=== PATIENT | male | born 1970 | race Caucasian/White ===

== ENCOUNTER 2025-01-02 06:56 | Outpatient (CLI) | payer BC, SELFPAY ==
--- NOTE | ~2025-01-02 | MR_ITS ---
MRI of the lumbar spine Clinical History: Back pain with right sciatica Technique: Axial T2-weighted images, and sagittal T1-weighted, T2-weighted, and and T2 fat-sat images were acquired. Findings: There is no fracture or subluxation of the lumbar spine. Vertebral bodies maintain normal h eight and alignment. No bone marrow signal abnormality seen. At L1-L2, there is no disc bulge or herniation. There is moderate facet hypertrophy. No spinal canal stenosis or neural foraminal narrowing. At L2-L3, there is no disc bulge or herniation. There is moderate facet hypertrophy. No central canal stenosis or neural foraminal narrowing. At L3-L4, there is no significant disc bulge or herniation. There is mild facet joint hypertrophy. No central canal stenosis or neural foraminal narrowing. At L4-L5, there is diffuse disc bulge and protrusion with severe facet arthropathy. There is no chela central canal stenosis. There is moderate to advanced left neural foraminal narrowing, and severe ri ght neural foraminal narrowing. At L5-S1, there is minimal disc bulge. No chela spinal canal stenosis. There is minimal left neural f oraminal narrowing. Right neural foramen preserved. Paravertebral soft tissues are unremarkable Impression: Advanced degenerative spondylitic changes at L4-L5, as detailed above. Minimal degenerative changes otherwise. Reviewed, dictated and finalized at [facility]. TRONIC TECH Impression: Advanced degenerative spondylitic changes at L4-L5, as detailed above. Minimal degenerative changes otherwise.
--- OUTSIDE RECORDS SUMMARY | 2025-01-02 07:02 | XMS_ITS | Clinical Summary ---
Author Organization [facility] Address [address] [place] [address] Care Team Providers Care Cylinder Tester Name Role Phone Burak Hauser MD Unavailable [phone] Isaura Gil PA-C Primary Care Provider [phone] Allergies No known active allergies Medications Cholecalciferol (VITAMIN D) 1000 UNIT tablet Take 1 tablet (1,000 Units total) by mouth daily. 8 Active cyclobenzaprine 10 MG tabletIndications: Chronic low back pain without sciatica, unspecified back pain laterality Take 1 tablet (10 mg total) by mouth 3 (three) times daily as needed for Muscle Spasms. 30 tablet 0 Active CPAP DEVICE, DME,Indications:Ob structive sleep apnea Smart cpap Low 5 High 15. Pt has excessive daytime sleepiness 1 Device 0 Active DICLOFENAC EC 75 MG tabletIndications: Chronic low back pain without sciatica, unspecified back pain laterality TAKE 1 TABLET(75 MG) BY MOUTH DAILY NEEDED FOR BACK PAIN 30 tablet 0 Active ibuprofen 600 MG tablet Take 600 mg by mouth every 6 (six) hours as needed for Pain. Active levothyroxine (SYNTHROID) 150 MCG tabletIndications: Hypothyroidism, unspecified type Take 1 pill daily from Monday to Monday. Take 2 pills every Monday and 2 pills every Monday 38 tablet 2 0 Active ondansetron (ZOFRAN-ODT) 4 MG disintegrating tablet Take 1 tablet (4 mg total) by mouth every 8 (eight) hours as needed for Nausea. 20 tablet 2 Active Active Problems Problem Noted Date Diagnosed Date Obstructive sleep apnea 03/02/2020 Chronic fatigue 01/19/2020 Chest pain 11/01/2018 SOB (shortness of breath) 11/01/2018 Hypothyroidism 11/30/2012 Obesity 11/30/2012 Low back pain 11/30/2012 Sciatica 11/30/2012 Resolved Problems Problem Noted Date Diagnosed Date Resolved Date Snoring 01/19/2020 03/02/2020 Family History Medical History Relation Comments Hypertension Father cad Maternal Grandfather Relation Status Comments Brother Alive Father Alive Maternal Grandfather Mother Alive Social History Tobacco Use Types Packs/Day Years Used Date Smoking Tobacco: Former Electronic Cigarettes Quit: 2017 Smokeless Tobacco: Former Quit: 2016 Comments:former cigarette sm oker; now uses ecigarettes Alcohol Use Standard Drinks/Week Comments Yes 0 (1 standard drink = 0.6 oz pur e alcohol) 1-2 / week Sex and Gender Information Value Date Recorded Sex Assigned at Not on file Legal Sex Male 8:34 PM CDT Gender Identity Not on file Sexual Orientation Not on file Occupation Industry Job Start Date Job End Date [employer] Not on file Not on file Not on file Last Filed Vital Signs Vital Sign Reading Time Taken Comments Blood Pressure 150/66 07/24/2022 4:42 PM CDT Pulse 80 07/24/2022 4:42 PM CDT Temperature 37.1 C (98.7 F) 07/24/2022 4:42 PM CDT Respiratory Rate 20 07/24/2022 4:42 PM CDT Oxygen Saturation 97% 07/24/2022 4:42 PM CDT Inhaled Oxygen Concentration - - Weight 135.6 kg (299 lb) 07/24/2022 12:46 PM CDT Height 185.4 cm (6' 1 ) 07/24/2022 12:46 PM CDT Body Mass Index 39.45 07/24/2022 12:46 PM CDT Plan of Treatment Health Maintenance Due Date Last Done Comments Colorectal Cancer Screening Colonoscopy (10 Years) 1971 Annual Physical 1974 Hepatitis C 1989 DTaP, Tdap and Td Vaccines ( 1 - Tdap) 1990 Hepatitis B Vaccines (1 of 3 - 19+ 3-dose series) 1990 Zoster Vaccines (1 of 2) 2021 COVID-19 Vaccine (3 - 2023-2 5 season) 2024 10/08/2021, 09/17/2021 Influenza Adult (#1) 2024 Meningococcal B Vaccine Aged Out No l onger eligible based on patient's age to complete this topic Meningococcal Vaccine Aged Out No jelly sofie eligible based on patient's age to complete this topic Pneumococcal Vaccine: Pediatrics (0 to 5 Years) and At-Risk Patients (6 to 64 Years) Aged Out No longer eligible b ased on patient's age to complete this topic RSV Immunizations Under 20 Months Aged Out No longer eligible b ased on patient's age to complete this topic Insurance [facility] Care Teams Cylinder Tester Relationship Specialty Start Date End Date Isaura Gil PA-C [address] [place] [address] PCP - General PHYSICIAN DRYING OVEN TENDER 04/05/23 Burak Hauser MD [facility]. [address] [address] [place] Supervisor Offset Plate Preparation CARDIOVASCULAR DISEASE 10/22/18
--- OUTSIDE RECORDS SUMMARY | 2025-01-02 07:02 | XMS_ITS | Continuity of Care Document ---
Author Name [facility] Organization [facility] Care Team Providers Care Director Of Outside Sales Name Role Phone [facility] Unavailable Unavailable Problems Combined list of problems from Department of Defense and Veterans Affairs facilities. It does not include entries that were removed or entered in error. Problem Status Onset Date Problem Type Date of Resolution Comments Source Back pain Active Condition [facility] Chronic kidney disease stage 2 Active Condition [facility] Elevated blood-pressure reading without diagnosis of hypertension Active Condition [facility] Fatty liver Active Condition [facility] History of calculus of kidney Active Condition [facility] Hyperlipidemia (SNOMED CT 61855591) Active Condition [facility] Hypothyroid (SNOMED CT 42938868) Active Condition [facility] Obesity Active Condition [facility] Plantar fasciitis Active Condition [facility] Prediabetes Active Condition [facility] Tinnitus Active Condition [facility] Vitamin D deficiency Active Condition [facility] Chronic low back pain (SNOMED CT 372761939) Inactive Condition 09/25/2023 [facility] Foot Pain (ICD-9-CM 719.47) Inactive Condition 09/25/2023 [facility] Knee Pain Inactive Condition 09/25/2023 [facility] Neck Pain Inactive Condition 09/25/2023 [facility] PTSD Inactive Condition 09/25/2023 [facility] Shoulder Pain Inactive Condition 09/25/2023 [facility] TOBACCO USE DISORDER Inactive Condition 09/25/2023 [facility] Vitamin D deficiency (SNOMED CT 22538127) Inactive Condition 09/25/2023 [facility] Diagnosis: ICD-10-CM E66.9 Obesity, unspecified Active Diagnosis [facility] Diagnosis: ICD-10-CM E03.9 Hypothyroidism, unspecified Active Diagnosis [facility] Diagnosis: ICD-10-CM M54.16 Radiculopathy, lumbar region Active Diagnosis [facility] Diagnosis: ICD-10-CM M54.9 Dorsalgia, unspecified Active Diagnosis [facility] Diagnosis: ICD-10-CM Z91.89 Oth personal risk factors, not elsewhere classified Active Diagnosis [facility] Diagnosis: ICD-10-CM Z00.01 Encounter for general adult medical exam w abnormal findings Active Diagnosis [facility] Medications Combined list of outpatient medications from Department of Defense and [facility] facilities.Medications provided include 1) outpatient medications from the last 15 months, and 2) patient-reported medications. Medication Details Route Status Patient Instructions Prescription Expires Prescription Number Last Dispense Date Ordering Provider Order Date Order Qty Source ACETAMINOPH EN 325MG TAB TAKE TWO TABLETS BY MOUTH FOUR TIMES A DAY NEEDED FOR PAIN/FEV ER. CAUTION: DO NOT EXCEED 4000MG PER DAY ACETAMIN OPHEN (APAP) FROM ALL MEDS. ORAL ACTIVE 07/27/2025 [id number] ADOLFO MI MD 2023 200 [facility] ACETAMINOPH EN 325MG TAB TAKE TWO TABLETS BY MOUTH FOUR TIMES A DAY NEEDED FOR PAIN/FEV ER. CAUTION: DO NOT EXCEED 4000MG PER DAY ACETAMIN OPHEN (APAP) FROM ALL MEDS. ORAL DISCONT INUED 05/29/2024 [id number] ADOLFO MI MD 2022 200 [facility] CHOLECALCIF ALEJANDRO 50MCG (2,000UNIT) TAB TAKE ONE TABLET BY MOUTH ONCE A DAY FOR VITAMIN D DEFICIEN CY ORAL 11/17/2024 [id number] BINGKATRIN LBY R 2022 100 [facility] CYCLOBENZAP RINE HCL 10MG TAB TAKE ONE TABLET BY MOUTH TWICE DAILY NEEDED FOR MUSCLE SPASM. MAY CAUSE DROWSINE SS. DO NOT DRINK ALCOHOL WHILE TAKING THIS MEDICATI ON. ORAL 09/28/2024 [id number] KATRIN SMART LBY R 2022 60 [facility] DICLOFENAC NA 75MG TAB,EC TAKE ONE TABLET BY MOUTH TWICE DAILY NEEDED FOR PAIN - TAKE WITH FOOD ORAL 09/28/2024 [id number] KATRIN SMART LBNikkie R 2022 60 [facility] LEVOTHYROXI NE NA 150MCG TAB (SYNTHROID) TAKE ONE TABLET BY MOUTH MON, MON, MON, MON AND MON AND TAKE TWO TABLETS MONDAY AND MONDAY FOR HYPOTHYR OIDISM TAKE 30 MINUTES BEFORE FOOD. TAKE SEPARATE LY FROM ALL OTHER MEDICATI ONS. ORAL DISCONT INUED (EDIT) 09/28/2024 [id number] KATRIN SMART R 2022 108 [facility] LEVOTHYROXI NE NA 175MCG TAB TAKE ONE TABLET BY MOUTH ONCE A DAY FOR HYPOTHYR OIDISM TAKE 30 MINUTES BEFORE FOOD. TAKE SEPARATE LY FROM ALL OTHER MEDICATI ONS. ORAL 12/25/2024 [id number] ME JEFFY TTISA 2023 90 [facility] Immunizations Combined list of available immunizations from the Department of Defense and Veterans [facility] facilities. Immunization Series Date Given Administered By Site Reaction Lot Number CVX Code Drug Grocery Supervisor Status Comments Source COVID-19 (PFIZER), MRNA, LNP-S, PF, 30 MCG/0.3 ML DOSE 2 2020 208 complet ed [facility] COVID-19 (PFIZER), MRNA, LNP-S, PF, 30 MCG/0.3 ML DOSE 1 2020 208 complet ed [facility] TDAP 2011 115 complet ed Right Deltoid [facility] TDAP 2007 115 complet ed [place] INFLUENZA, UNSPECIFIED FORMULATION 2004 88 complet ed [facility] Results Combined list of recent chemistry, hematology and other laboratory results from Department of Defense and Veterans Affairs, ranging from 15 months to all on record, depending upon the facility. Order Name Results Value Reference Range Date Interpretation Specimen Comments Source HGA1C HEMOGLOBIN A1C/HEMOGL OBIN.TOTAL IN BLOOD 5.3 4.0 - 6.0 09/25 Specimen Type: BLOOD No comment entered. Ordering Provider: FIGUEROA BARDALES EVERETT Report Released Date/Time: Sep 24, 2024 01:44 PM Reporting Lab: [place] [address] Performing Lab: [address] PROST. SPECIFIC AG.(PB-S TL) PROSTATE SPECIFIC AG [MASS/VOLU ME] IN SERUM OR PLASMA 2.003 ng/mL 0 - 4 09/25 Specimen Type: SERUM Comment: The listed sex of this patient may not be a typical indication for this test. Therefore, reference ranges or interpretiv e criteria listed may not be valid. Clinical correlation suggested. Ordering Provider: FIGUEROA BARDALES EVERETT Report Released Date/Time: Sep 24, 2024 01:44 PM Reporting Lab: [place] [address] Performing Lab: [address] TSH W/ REFLEX FT4 (STL) THYROTROPI N [UNITS/VOL UME] IN SERUM OR PLASMA 12.725 u[IU]/mL 0.47 - 5 09/25 H Specimen Type: PLASMA No comment entered. Ordering Provider: FIGUEROA BARDALES EVERETT Report Released Date/Time: Sep 24, 2024 01:45 PM Reporting Lab: [place] [address] Performing Lab: [address] TSH W/ REFLEX FT4 (STL) FREE T4(REFLEX) 0.93 ng/mL 0.7 - 1.48 09/25 Specimen Type: PLASMA No comment entered. Ordering Provider: FIGUEROA BARDALES EVERETT Report Released Date/Time: Sep 24, 2024 01:45 PM Reporting Lab: [facility] [address] [place] [phone] Performing Lab: [facility] [address] [place] [phone] [facility] LIPID PANEL (STL) CHOLESTERO L [MASS/VOLU ME] IN SERUM OR PLASMA 251 mg/dL 0 - 200 09/25 H Specimen Type: PLASMA Comment: No hemolysis noted. Ordering Provider: FIGUEROA BARDALES EVERETT Report Released Date/Time: Sep 24, 2024 01:44 PM Reporting Lab: [address] [address] Performing Lab: [address] [phone] [facility] LIPID PANEL (STL) TRIGLYCERI DE [MASS/VOLU ME] IN SERUM OR PLASMA 139 mg/dL 0 - 150 09/25 Specimen Type: PLASMA Comment: No hemolysis noted. Ordering Provider: FIGUEROA BARDALES EVERETT Report Released Date/Time: Sep 24, 2024 01:44 PM Reporting Lab: [address] [phone] Performing Lab: [address] [phone] [facility] LIPID PANEL (STL) CHOLESTERO L IN LDL [MASS/VOLU ME] IN SERUM OR PLASMA BY CALCRONIT N 182 mg/dL 09/25 Specimen Type: PLASMA Comment: No hemolysis noted. Ordering Provider: FIGUEROA BARDALES EVERETT Report Released Date/Time: Sep 24, 2024 01:44 PM Reporting Lab: [address] [phone] Performing Lab: [address] [phone] [facility] LIPID PANEL (STL) CHOLESTERO L IN HDL [MASS/VOLU ME] IN SERUM OR PLASMA 41 mg/dL 40 09/25 Specimen Type: PLASMA Comment: No hemolysis noted. Ordering Provider: FIGUEROA BARDALES EVERETT Report Released Date/Time: Sep 24, 2024 01:44 PM Reporting Lab: [address] [address] Performing Lab: [place] [phone] BASIC METABOLI C PANEL CREATININE [MASS/VOLU ME] IN SERUM OR PLASMA 1.44 mg/dL 0.7 - 1.3 09/25 H Specimen Type: PLASMA Comment: No hemolysis noted. Ordering Provider: FIGUEROA BARDALES EVERETT Report Released Date/Time: Sep 24, 2024 01:44 PM Reporting Lab: [place] [phone] Performing Lab: [address] [phone] [place] [address] BASIC METABOLI C PANEL UREA NITROGEN [MASS/VOLU ME] IN SERUM OR PLASMA 15.1 mg/dL 9.0 - 25.0 09/25 Specimen Type: PLASMA Comment: No hemolysis noted. Ordering Provider: FIGUEROA BARDALES EVERETT Report Released Date/Time: Sep 24, 2024 01:44 PM Reporting Lab: [address] [phone] Performing Lab: [address] [phone] [place] [address] BASIC METABOLI C PANEL GLUCOSE [MASS/VOLU ME] IN SERUM OR PLASMA 83 mg/dL 72 - 99 09/25 Specimen Type: PLASMA Comment: No hemolysis noted. Ordering Provider: FIGUEROA BARDALES EVERETT Report Released Date/Time: Sep 24, 2024 01:44 PM Reporting Lab: [address] [phone] Performing Lab: [place] [address] [facility] [phone] [facility] BASIC METABOLI C PANEL SODIUM [MOLES/VOL UME] IN SERUM OR PLASMA 138 meq/L 136 - 145 09/25 Specimen Type: PLASMA Comment: No hemolysis noted. Ordering Provider: FIGUEROA BARDALES VEERETT Report Released Date/Time: Sep 24, 2024 01:44 PM Reporting Lab: [address] [phone] Performing Lab: [address] [phone] [place] [address] BASIC METABOLI C PANEL POTASSIUM [MOLES/VOL UME] IN SERUM OR PLASMA 4.2 meq/L 3.5 - 5 09/25 Specimen Type: PLASMA Comment: No hemolysis noted. Ordering Provider: FIGUEROA BARDALES EVERETT Report Released Date/Time: Sep 24, 2024 01:44 PM Reporting Lab: [address] [phone] Performing Lab: [address] [phone] [place] [address] BASIC METABOLI C PANEL CHLORIDE [MOLES/VOL UME] IN SERUM OR PLASMA 100 meq/L 98 - 107 09/25 Specimen Type: PLASMA Comment: No hemolysis noted. Ordering Provider: FIGUEROA BARDALES EVERETT Report Released Date/Time: Sep 24, 2024 01:44 PM Reporting Lab: [address] [phone] Performing Lab: [address] [phone] [facility] BASIC METABOLI C PANEL CARBON DIOXIDE, TOTAL [MOLES/VOL UME] IN SERUM OR PLASMA 26 meq/L 22 - 31 09/25 Specimen Type: PLASMA Comment: No hemolysis noted. Ordering Provider: FIGUEROA BARDALES EVERETT Report Released Date/Time: Sep 24, 2024 01:44 PM Reporting Lab: [place] [address] [facility] [address] Performing Lab: [place] [address] [place] [phone] BASIC METABOLI C PANEL CALCIUM [MASS/VOLU ME] IN SERUM OR PLASMA 10.2 mg/dL 8.4 - 10.4 09/25 Specimen Type: PLASMA Comment: No hemolysis noted. Ordering Provider: FIGUEROA BARDALES EVERETT Report Released Date/Time: Sep 24, 2024 01:44 PM Reporting Lab: [address] [address] Performing Lab: [place] [address] BASIC METABOLI C PANEL GLOMERULAR FILTRATION RATE/1.73 SQ M.PREDICTE D [VOLUME RATE/AREA] IN SERUM, PLASMA OR BLOOD BY CREATININE -BASED FORMULA (CKD-EPI 2020) 58.1 60 09/25 Specimen Type: PLASMA Comment: No hemolysis noted. Ordering Provider: FIGUEROA BARDALES EVERETT Report Released Date/Time: Sep 24, 2024 01:44 PM Reporting Lab: [place] [address] [place] [phone] Performing Lab: [place] [address] [facility] [phone] OCCULT BLOOD FIT X1 SCREEN HEMOGLOBIN .GASTROINT ESTINAL.LO WER [PRESENCE] IN STOOL BY IMMUNOASSA Y Negative 01/01 Specimen Type: FECES No comment entered. Ordering Provider: [place] SMART Report Released Date/Time: Nov 08, 2023 08:15 AM Reporting Lab: [place] [phone] Performing Lab: [place] [address] [facility] [phone] [place] [address] TSH (MA-PB-S TL) THYROTROPI N [UNITS/VOL UME] IN SERUM OR PLASMA 5.130 u[IU]/mL 0.47 - 5 11/08 H Specimen Type: SERUM Comment: The listed sex of this patient may not be a typical indication for this test. Therefore, reference ranges or interpretiv e criteria listed may not be valid. Clinical correlation suggested. Ordering Provider: [place] SMART Report Released Date/Time: Nov 08, 2023 08:15 AM Reporting Lab: [place] [address] Performing Lab: [address] TSH (MA-PB-S TL) THYROXINE (T4) FREE [MASS/VOLU ME] IN SERUM OR PLASMA 0.91 ng/mL 0.7 - 1.48 11/08 Specimen Type: SERUM Comment: The listed sex of this patient may not be a typical indication for this test. Therefore, reference ranges or interpretiv e criteria listed may not be valid. Clinical correlation suggested. Ordering Provider: [place] SMART Report Released Date/Time: Nov 08, 2023 08:15 AM Reporting Lab: [place] [address] Performing Lab: [address] HGA1C HEMOGLOBIN A1C/HEMOGL OBIN.TOTAL IN BLOOD 5.7 4.0 - 6.0 11/08 Specimen Type: BLOOD No comment entered. Ordering Provider: [place] SMART Report Released Date/Time: Nov 08, 2023 08:15 AM Reporting Lab: [place] [address] Performing Lab: [address] LIPID PANEL (STL) CHOLESTERO L [MASS/VOLU ME] IN SERUM OR PLASMA 171 mg/dL 0 - 200 11/08 Specimen Type: PLASMA Comment: No hemolysis noted. Ordering Provider: [place] SMART Report Released Date/Time: Nov 08, 2023 08:15 AM Reporting Lab: [facility] [address] [facility] [address] Performing Lab: [facility] [address] [place] [phone] [facility] LIPID PANEL (STL) TRIGLYCERI DE [MASS/VOLU ME] IN SERUM OR PLASMA 117 mg/dL 0 - 150 11/08 Specimen Type: PLASMA Comment: No hemolysis noted. Ordering Provider: [place] SMART Report Released Date/Time: Nov 08, 2023 08:15 AM Reporting Lab: [address] [phone] Performing Lab: [address] [phone] [facility] LIPID PANEL (STL) CHOLESTERO L IN LDL [MASS/VOLU ME] IN SERUM OR PLASMA BY CALCULARADHA N 117 mg/dL 11/08 Specimen Type: PLASMA Comment: No hemolysis noted. Ordering Provider: [place] SMART Report Released Date/Time: Nov 08, 2023 08:15 AM Reporting Lab: [facility] [address] [place] [phone] Performing Lab: [address] [phone] [facility] LIPID PANEL (STL) CHOLESTERO L IN HDL [MASS/VOLU ME] IN SERUM OR PLASMA 31 mg/dL 40 11/08 L Specimen Type: PLASMA Comment: No hemolysis noted. Ordering Provider: KY SMART Report Released Date/Time: Nov 08, 2023 08:15 AM Reporting Lab: [facility] [address] [place] [phone] Performing Lab: [address] [phone] [facility] VITAMIN D, 25-HYDRO XY 25-HYDROXY VITAMIN D3 [MASS/VOLU ME] IN SERUM OR PLASMA 22.9 ng/mL 30 - 96 11/08 L Specimen Type: SERUM No comment entered. Ordering Provider: [place] SMART Report Released Date/Time: Nov 08, 2023 08:15 AM Reporting Lab: [facility] [address] [place] [address] Performing Lab: [facility] [address] [place] [phone] [facility] Vital Signs Combined list of inpatient and outpatient Vital Signs from Department of [facility] and [facility], ranging from 12 months to all on record, depending upon the facility. Vital Sign Value Date Comments Source SYSTOLIC BLOOD PRESSURE 165 09/24/2024 13:50:49 [facility] DIASTOLIC BLOOD PRESSURE 75 09/24/2024 13:50:49 [facility] PULSE OXIMETRY 95 09/24/2024 13:50:49 [facility] WEIGHT 299.8 09/24/2024 13:50:[address] [facility] BMI 42 kg/m2 09/24/2024 13:50:[address] [facility] PAIN 9 09/24/2024 13:50:[address] [facility] TEMPERATURE 98.8 09/24/2024 13:50:49 [facility] PULSE 67 09/24/2024 13:50:[address] [facility] RESPIRATION 18 09/24/2024 13:50:49 [facility] Encounters Combined list of: 1) Encounters from Department of Veterans Affairs facilities going backup to the last 18 months, not all [place] inpatient encounters are included; 2) Encounters from the Department of [facility] facilities going backup to 280 months. Location Location Details Encounter Type Encounter Number Reason For Visit Attending Provider ADM Date DC Date Status Disposition Source [facility] HC PRO PHONE CALL 5-10 MIN [id number] STEPAN GALLEGO C 09/20 [facility] Outpatient Encounter [id number] Diagnos is: ICD-10- CM Z00.01 Encount er for general adult medical exam w abnorma l finding s JUAN FRANCISCO SMART BY Julio 09/[address] [facility] OFF/OP EST MARCH X REQ PHY/QHP [id number] Diagnos is: ICD-10- CM Z91.89 Oth persona l risk factors , not elsewhe re classif ied [place] Mica 10/10 [facility] Outpatient Encounter [id number] ROMI MEJIA 10/10 [facility] Outpatient Encounter [id number] JUVENTINO GILLESPIE 03/11 [facility] Outpatient Encounter [id number] JUVENTINO GILLESPIE 03/11 [facility] Outpatient Encounter [id number] JUVENTINO GILLESPIE 03/15 [facility] Outpatient Encounter [id number] Diagnos is: ICD-10- CM M54.9 Dorsalg ia, unspeci fied JUAN FRANCISCO SMART BY Julio 03/25 [facility] Outpatient Encounter [id number] 04/17 [facility] Outpatient Encounter [id number] 06/04 [facility] Outpatient Encounter [id number] 06/05 [facility] Outpatient Encounter [id number] 08/06 [facility] OFF/OP CONSLTJ NEW/EST HI 55 [id number] Diagnos is: ICD-10- CM M54.16 Radicul opathy, lumbar region BRUCE PRESTON 09/18 [facility] Outpatient Encounter [id number] 09/20 [facility] OFFICE O/P EST MOD 30 MIN [id number] Diagnos is: ICD-10- CM E03.9 Hypothy roidism , unspeci fied JEFFY,MET DAT 09/24 [facility] Outpatient Encounter [id number] ROMI MEJIA L 09/26 [facility] Outpatient Encounter [id number] ROMI MEJIAYN L 10/22 [facility] Outpatient Encounter [id number] ROMI MEJIA ELESAU L 11/29 [facility] [place] [id number] Diagnos is: ICD-10- CM E66.9 Obesity , unspeci fied RYAN CHILEL C 12/18 [facility] Outpatient Encounter [id number] 12/19 [facility] Social History Combined list of available smoking, tobacco, and other social history from Department of Defense and Veterans Affairs facilities. Social History Type Response Date Comment Sour e Tobacco smoking status NHIS VA-TOBACCO FORMER USER 09/24/2024 [facility] History of tobacco use VA-TOBACCO QUIT 5 TO < 15 YRS 09/24/2024 [facility] History of tobacco use VA-TOBACCO QUIT 5 TO < 15 YRS 09/22/2023 [facility] History of tobacco use VA-TOBACCO QUIT 1 TO < 5 YRS 03/23/2021 [facility] History of tobacco use VA-TOBACCO FORMER [facility]ER [facility]19[facility] History of tobacco use QUIT TOBACCO >12 MO and <7 YRS AGO 03/19/2018 [facility] History of tobacco use CURRENT TOBACCO USER 03/17/2017 [facility] History of tobacco use QUIT TOBACCO >7 YEARS AGO 07/16/2015 [facility] History of tobacco use CURRENT TOBACCO USER 04/15/2014 [facility] History of tobacco use TOBACCO OFFERRED PT MEDS (PROVIDER) 06/22/2012 [facility] History of tobacco use CURRENT TOBACCO USER 05/14/2010 Pal [facility] History of tobacco use CURRENT TOBACCO USER 07/23/2009 Pal [facility] History of tobacco use TOBACCO OFFERED STOP SMOKING CLINIC 05/05/2008 [facility] History of tobacco use CURRENT TOBACCO USER 01/25/2007 Pal [facility] History of tobacco use CURRENT TOBACCO USER 07/20/2006 [facility] History of tobacco use CURRENT NON-TOBACCO USER-HX OF USE 01/03/2006 [facility] History of tobacco use CURRENT TOBACCO USER 04/06/2005 Pal [facility] History of tobacco use CURRENT NON-TOBACCO USER-HX OF USE 10/07/2004 [facility] History of tobacco use CURRENT NON-TOBACCO USER-HX OF USE 08/14/[address] [facility] History of tobacco use CURRENT NON-TOBACCO USER-HX OF USE 09/20/2002 quit 6 months ago [facility] History of tobacco use CURRENT TOBACCO USER 04/10/2002 [facility] History of tobacco use CURRENT NON-TOBACCO USER-HX OF USE 05/22/2001 QUIT 4 YRS AGO [facility] This section is an empty social history section. [facility] Plan of Care List of future care activities from Department of [facility] facilities. Additional future care activities may be listed in the Assessment and Plan section. Date/Time Care Activity Care Activity Detail Facili ty 01/02/2025 AMBULATORY - NONE AMBULATORY - NONE [facility] 03/27/2025 AMBULATORY - NONE AMBULATORY - NONE [facility] 11/22/2024 Consult Order [facility]-AUTO STL Cons Copy Worker's Choice [facility] 12/11/2024 Laboratory - Live In Housekeeper Nanny ry Order OCCULT BLOOD FIT X1 SCREEN (MFP ONLY) STOOL FECES SP [facility]
--- OUTSIDE RECORDS SUMMARY | 2025-01-02 07:02 | XMS_ITS | Data Portability ---
Author Organization [facility], Main Office Address [address] [place] [address] Assessment No assessment recorded. Plan of Treatment Reminders Order Date Submit Date Provider Last Modified By Organization Details Last Modified Time Details Appointments None recorded. Lab None recorded. Referral None recorded. Procedures None recorded. Surgeries None recorded. Imaging None recorded. Medication Orders ipratropium bromide 42 mcg (0.06 %) nasal spray 2023 [id number], [address] [place], [place], [phone], 13:04:35 Patient TargetsNo targets recorded. Patient Instructions Encounter Date Encounter Id Patient Instructions Last Modified By Organization Details Last Modified Time 05/16/2024 [id number] we will try Atrovent but he is a good candidate for cryotherapy of the vidian nerve. His onset of symptoms does correlate with burn pit exposure [email or web address] Not available 05/16/2024 13:04:09 Reason for Referral None Reported. Problems Name Problem SNOMED Code Status Onset Date Resolution Date Notes Provider Name and Address Organization Details Recorded Time Vasomotor rhinitis 8454679 Active 024 Kush Harp MD [address] [place] [address], [id number] , [facility] [employer] 13:03:32 Problem Notes None recorded. Medical Equipment None Reported. Allergies No known drug allergies Medications Name Sig Start Date Stop Date Status Note LastModified by Organization Details LastModified Time cyclobenzapr ine 10 mg tablet active Not Available Not Available Not Available diclofenac sodium 75 mg tablet,delay ed release active Not Available Not Available N ot Available ipratropium bromide 42 mcg (0.06 %) nasal spray [place] 2 sprays 3 times a day by intranasal route. active Not Available Not Available No t Available levothyroxin e active Not Available Not Available Not Available ibuprofen active DAILY FOR PAIN Not Available Not Available Not Available Vitals Date Recorded Body weight Body mass index (BMI) Body height Body temperature Provider Name and Address Organization Details Last Updated DateTime 05/16/2024 234459.17 g 43 kg/m2 180.34 cm 98 [degF] Cari Biggs RN [facility] [employer] [facility] 05/16/2024 12:44:18 Social History Question Answer Notes LastModified by Organizat ion Details LastModified Time Tobacco Smoking Status Former Smoker Cari Biggs RN null, [facility] [employer] [facility] 05/16/2024 12:40:25 When Did You Quit Smoking? 6-10yearssin celastcigare tte [email or web address] Information not available 05/16/2024 Sex: Unknown Functional Status None recorded. Mental Status None recorded. Family History Relationship Description Onset Age of this Age Resolved Age Notes LastModified by Organization Details LastModified Time Father No current problems or disability [email or web address] Not available 05/16 12:42:53 Mother No current problems or disability [email or web address] Not available 05/16 12:42:53 Notes:NO ENT Medical History Condition Response SLEEP DISORDER Y Past Encounters Encounter ID Performer Location Encounter Start Date Encounter Closed Date Diagnosis/Indication Diagnosis SNOMED-CT Code Diagnosis ICD10 Code Diagnosis Note [id number] Kush Harp MD [facility] [place] [address] [place] [address] 05/16/2024 11:55:57 05/16/2024 16:15:47 Vasomotor rhinitis 3800345 J30.0 Health Concerns Section Related Observation LastModified by Organization Detai ls LastModified Time None Recorded Concern Status LastModified by Organization Details LastModified Time None Recorded Advance Directives Directive None Recorded Payers Encounter Date Sequence Insurance Name Policy Number Policy Clinton Covered Member ID Clinton Member ID Guarantor Name 05/16/2024 1 [place] [employer] ([place]) 105 Ki Godinez [id number] Ki Godinez Notes Date Note Type Note Provider Name and Address Organization Details Recorded Time 05/16/2024 text/html this patient reports a many years history of incessant rhinorrhea. He has been exposed to burn pits in [place] and has tried numerous fayg-svt-mbjwlwk sprays and pills without success. In addition he has nasal CPAP but is unable to use this at this time. Kush Harp MD [address] [place] [address], [place], [address], [place] - [facility] [employer] 05/16/2024 13:04:43
--- OUTSIDE RECORDS SUMMARY | 2025-01-02 07:02 | XMS_ITS | Clinical Summary ---
Author Organization [facility] Address [address] [place] [address] Care Team Providers Care Bell Clerk Name Role Phone Unavailable Primary Care Provider Unavailabl e Encounters Date Type Department Care Team Description 12/31/2024 External Device Data [facility] ABSTRACTION Provider, Abstract 11/26/2024 External Device Data [facility] ABSTRACTION Provider, Abstract from Last 3 Months Social History Tobacco Use Types Packs/Day Years Used Date Smoking Tobacco: Never Assessed Sex and Gender Information Value Date Recorded Sex Assigned at Not on file Legal Sex Male 3:21 PM CDT Gender Identity Not on file Sexual Orientation Not on file Plan of Treatment Health Maintenance Due Date Last Done Comments HEPATITIS B VACCINES (1 of 3 - 19+ 3-dose series) 1990 COLORECTAL SCREENING 2016 Colorectal Cancer Screening 2016 FIT-DNA Q 3 years 2016 FIT/FOBT Q 1 year 2016 Flex Sig/CT Colonography Q 5 years 2016 ZOSTER VACCINE (1 of 2) 2021 DTAP/TDAP/TD VACCINES (3 - T d or Tdap) 06/22/2022 06/22/2012, 09/28/2008 INFLUENZA VACCINE (#1) 2024 PNEUMOCOCCAL VACCINE 0-64 YEARS Aged Out No longer eligible b ased on patient's age to complete this topic Insurance [employer]
--- OUTSIDE RECORDS SUMMARY | 2025-01-02 07:02 | XMS_ITS | Encounter Summary ---
Author Name [facility] Organization [facility] Address [address] [place] [address] Care Team Providers Care Explosives Handler Name Role Phone BEBA SMART Primary Care Provider Unavailabl e Insurance Providers: All historical and current Section Date Range: From patient's date of to the date document was created. This section includes the names of all active insurance providers for the patient. Insurance Provider Type of Coverage Plan Name Start of Policy Coverage End of Policy Coverage Group Number Member ID Insurance Provider's Telephone Number Policy Clinton's Name Patient's Relationship to Policy Clinton [place] PREFERRED PROVIDER ORGANIZAT ION (PPO) FEP STAND SABA FAM Dec 01, 2013 105 [id number] [phone] ROBBIE GODINEZ PATIENT ANTHEM [place] F[place] PREFERRED PROVIDER ORGANIZAT ION (PPO) FEP STAND SABA FAM Dec 01, 2013 105 [id number] [phone] ROBBIE GODINEZ PATIENT ANTHEM [place] PREFERRED PROVIDER ORGANIZAT ION (PPO) FEP STAND SABA FAM Dec 01, 2013 105 [id number] [phone] ROBBIE GODINEZ PATIENT [place] PREFERRED PROVIDER ORGANIZAT ION (PPO) FEP STAND SABA FAM Dec 01, 2013 105 [id number] [phone] ROBBIE GODINEZ PATIENT [employer] FEP ([id number]) PRESCRIPT ION FEPRX Dec 01, 2013 [id number] [phone] ROBBIE GODINEZ PATIENT Selected Encounter This section includes the information on record at OR for the Encounter. Date/Time Encounter Type Encounter Description Reason Provider Source Sep 18, 2024 02:00 PM OFF/OP CONSLTJ NEW/EST HI [facility] ICD-10-CM M54.16 Radiculopathy , lumbar region BRUCE PRESTON [facility] Encounter Template Text not used by OR Assessments - Encounter Diagnoses This section includes the primary and secondary diagnoses documented for the Encounter. Date/Time Primary/Secondary Diagnosis Diagnosis Name Provider Source Sep 18, 2024 02:42 PM PRIMARY Radiculopathy, lumbar region BRUCE PRESTON [facility] Sep 18, 2024 02:42 PM SECONDARY Other chronic pain BRUCE PRESTON [facility] Plan of Treatment: Future Appointments (+ 6 months) and Future Tests (+/- 45 days) The Plan of Treatment section includes future care activities for the patient from all OR treatmentfacilities. This section includes future appointments and future orders which are active, pending or scheduled. Future Appointments This section includes appointments that were scheduled to occur 6 months from the date of the Encounter, up to a maximum of 20 appointments. The data comes from all [place] treatment facilities. Appointment Date/Time Appointment Type Appointme nt Facility Name Sep 24, 2024 02:00 PM AMBULATORY - MEDICINE [facility] Dec 18, 2024 08:30 AM AMBULATORY - NONE [facility] Jan 02, 2025 07:00 AM AMBULATORY - NONE [facility] Lab Results: +/- 30 days of the encounter This section includes the Chemistry and Hematology Lab Results on record with OR for the patient. Radiology Reports and Pathology Reports are provided separately, in subsequent sections. Lab Results This section contains the Chemistry/Hematology Results that were resulted 30 days before or 30 daysafter the date of the Encounter. Date/Time Source Result Type Result - Unit Interpretation Reference Range Comment Sep 25, 2024 01:12 PM [facility] HGA1C Specimen Type: BLOOD No comment entered. Ordering Provider: PATTI BARDALES Report Released Date/Time: Sep 24, 2024 01:44 PM Reporting Lab: [facility] [address] [facility] [address] Performing Lab: [facility] [address] [facility] [address] HGA1C 5.3 4.0-6.0 Sep 25, 2024 01:12 PM [facility] PROST. SPECIFIC AG.(PB-STL) Specimen Type: SERUM Comment: The listed sex of this patient may not be a typical indication for this test. Therefore, reference ranges or interpretive criteria listed may not be valid. Clinical correlation suggested. Ordering Provider: PATTI BARDALES Report Released Date/Time: Sep 24, 2024 01:44 PM Reporting Lab: [address] [address] Performing Lab: [address] [address] PROST. SPECIFIC AG.(PB-STL) 2.003 ng/mL 0-4 Sep 25, 2024 01:12 PM [facility] TSH W/ REFLEX FT4 (STL) Specimen Type: PLASMA No comment entered. Ordering Provider: PATTI BARDALES Report Released Date/Time: Sep 24, 2024 01:45 PM Reporting Lab: [address] [address] Performing Lab: [address] [address] TSH 12.725 u[IU]/mL H 0.47-5 FREE T4(REFLEX) 0.93 ng/mL 0.7-1.48 Sep 25, 2024 01:12 PM [facility] LIPID PANEL (STL) Specimen Type: PLASMA Comment: No hemolysis noted. Ordering Provider: PATTI BARDALES Report Released Date/Time: Sep 24, 2024 01:44 PM Reporting Lab: [address] [address] Performing Lab: [address] [address] CHOLESTEROL 251 mg/dL H 0-200 TRIGLYCERIDE 139 mg/dL 0-150 CALCULATED LDL 182 mg/dL HDL(New) 41 mg/dL >40 Sep 25, 2024 01:12 PM [facility] BASIC METABOLIC PANEL Specimen Type: PLASMA Comment: No hemolysis noted. Ordering Provider: PATTI BARDALES Report Released Date/Time: Sep 24, 2024 01:44 PM Reporting Lab: [facility] [address] [facility] [address] Performing Lab: [facility] [address] [facility] [address] CREATININE 1.44 mg/dL H 0.7-1.3 UREA NITROGEN 15.1 mg/dL 9.0-25.0 GLUCOSE 83 mg/dL 72-99 SODIUM 138 meq/L 136-145 POTASSIUM 4.2 meq/L 3.5-5 CHLORIDE 100 meq/L 98-107 CARBON DIOXIDE 26 meq/L 22-31 CALCIUM 10.2 mg/dL 8.4-10.4 EGFR (CKD-EPI 2020) 58.1 >60 Encounter Notes: All associated encounter notes This section contains the clinical notes associated to the Encounter. Date/Time Encounter Note(s) Provider Source Sep 18, 2024 02:07 PM TELEHEALTH CONSULT : LOCAL TITLE: V15 EMMY PUENTE MD CONSULT STANDARD TITLE: TELEHEALTH CONSULT DATE OF NOTE: SEP 18, 2024@14:07 ENTRY DATE: SEP 18, 2024@14:08:10 AUTHOR: BRUCE PRESTON EXP COSIGNER: URGENCY: STATUS: COMPLETED This was a telemedicine visit with which took place via video connect. During the visit, I was located in the office and the patient was located in his home. Vet confirmed current location and phone number. The option of participating in a telephone or video visit were provided to the patient. After being given an opportunity to ask questions about and discuss this type of visit, they verbally consented to proceeding with the (video visit) and understands that this service replaces an office visit. Patient was instructed that session would occur through telemedicine clinic. Kelley agreeable to tele health visit and gives consent to (VVC appointment). The physician was on one side of the video screen while the was on the other side of the video screen via OR [employer] Connect. Any Additional Persons in the Room: n/a Address and phone number verified per CPRS and report. Emergency contact's number confirmed. Physician could see and at the same time, the could see Physician to give instruction in reason for request. -Local Tax Technician if Patient Does Not Have 911 Available: -E911: [phone] Emergency Use Only- e911 Instructions Call [phone] to speak with an agent who can put you in touch with a transcribing operator head at the Patient's location. You must have the physical location (address) where the Patient is currently located. -[facility] Crisis Line: [phone] Press Option 1 -Telehealth Technology Help Desk: Technical Assistance For technical assistance, clinicians should contact the [facility] Help Desk ([facility]) [phone] or , Monday through Monday, 7 a.m. through 11 p.m. EST. Patient Name: Wendi Godinez Patient : Dec Date: SEP 18, 2024 PCP: BEBA SMART CHIEF COMPLAINT: low back pain HPI: Wendi is a 54 year old MALE was referred by BEBA SMART for consultation regarding treatment recommendations for management of low back pain Wendi is a 54 year-old MALE with a history of prediabetes, fatty liver, hyperlipidemia who presents with chronic low back pain for the last several decades Current low back pain began with no precipating event. Since onset, pain has progressed. He tells me that he has several bulging discs, and is in the process of getting these uploaded. has lumbar films from 2016. Pain has progressed since then in intensity and not as responsive to conservative efforts. Pain also travels down the right lower extremity. He reports no new bowel/bladder incontinence, numbness, tingling recent fevers, chills, or weight loss. The pain is constant and described as Worst Pain: low back pain Pain description, characteristics: aching constant Pain intensity: worst pain in last week - 10/10; least pain in the last week- 5/10; current pain - 5/10. Radiation of pain: Symptoms travel down the posterior thigh, calf, and plantar aspect of the right foot Associated signs/symptoms: has associated numbness and tingling with sitting and standing for long periods of time. Standing for long periods of time, causes numbness down the right leg. If he sleeps for long periods of time, he has muscle spasms Therapeutic modalities to date include at least 6 week during the past 6 months of conservative treatment to include [X ]rest/ice/heat/modified activities [ ]acupuncture [X ]physical therapy- seen a physical therapist with [facility], and did have some relief [X]care specialist- sees a chiropracter, helps alleviate some of the pain [ ]whole health Previous injections: - has not had any injections in the lumbar spine Current and Prior Pain Medications: Opioid: AEDs: Anti-Depressants: Muscle Relaxants: cyclobenzaprine 10mg BID as needed Anti-Inflammatories: diclofenac 75mg BID as needed Topical: Sleep Aids: Other: Diagnostics: Date Procedure CPT Status Case # I personally reviewed the patient's labs, radiology results, and/or scanned media from the patient's outside healthcare provider. Any relevant history findings are incorporated into the HPI and any relevant labs are included in the results. I personally reviewed the above neurologic imaging, if available and unless otherwise stated. Active Outpatient Medications (including Supplies): Active Outpatient Medications Status 1) ACETAMINOPHEN 325MG TAB TAKE TWO TABLETS BY MOUTH ACTIVE FOUR TIMES A DAY NEEDED FOR PAIN/FEVER. CAUTION: DO NOT EXCEED 4000MG PER DAY ACETAMINOPHEN (APAP) FROM ALL MEDS. 2) CHOLECALCIF 50MCG (D3-2,000UNIT) TAB TAKE ONE TABLET ACTIVE BY MOUTH ONCE A DAY FOR VITAMIN D DEFICIENCY 3) CYCLOBENZAPRINE HCL 10MG TAB TAKE ONE TABLET BY MOUTH ACTIVE TWICE DAILY NEEDED FOR MUSCLE SPASM. MAY CAUSE DROWSINESS. DO NOT DRINK ALCOHOL WHILE TAKING THIS MEDICATION. 4) DICLOFENAC NA 75MG EC TAB TAKE ONE TABLET BY MOUTH ACTIVE TWICE DAILY NEEDED FOR PAIN - TAKE WITH FOOD 5) LEVOTHYROXINE NA (SYNTHROID) 150MCG TAB TAKE ONE ACTIVE TABLET BY MOUTH MON, TUE, WED, DAYA AND FRI AND TAKE TWO TABLETS MONDAY AND MONDAY FOR HYPOTHYROIDISM TAKE 30 MINUTES BEFORE FOOD. TAKE SEPARATELY FROM ALL OTHER MEDICATIONS. Allergies: Patient has answered NKA Past Medical History 1) Hypothyroid (SNOMED CT 22068661) 2) Hyperlipidemia (SNOMED CT 59327865) 3) Elevated blood-pressure reading without diagnosis of hypertension 4) Back pain 5) History of calculus of kidney 6) Plantar fasciitis 7) Obesity 8) Tinnitus 9) Fatty liver 10) Prediabetes 11) Vitamin D deficiency 12) Chronic kidney disease stage 2 Past Surgical History - no prior spinal surgeries Family Medical History -no family history of peripheral neuropathy Social history - Tobacco Use: denies, hx of tobacco use, quit 7 years ago - Alcohol Use: denies - Illicit Drug Use: denies Review of Systems: Negative unless as stated above Pertinent labs: Methadone panel: No METHADONE PANEL EO data found Buprenorphine: No BUPRENORPHINE EO data found UDS: No URINE DRUG SCREEN EO data found Tramadol: No data available for: TRAMADOL Creatinine: No CREATININE EO data found Hemoglobin A1c HGA1C 5.7 % 11/08/2023 08:23 Hemoglobin HGB 15.1 g/dL 11/08/2023 08:23 Hematocrit HCT 44.3 % 11/08/2023 08:23 White Blood Cell 8.2 10*3/uL (11/08/23 08:23) Platelets: PLT 232 10*3/uL 11/08/2023 08:23 Vitamin D SCLU - Lab Cum Selected No selection items chosen for this component. LFTs: AST/SGOT 35 H U/L 11/08/2023 08:23 ALT/SGPT 52 H U/L 11/08/2023 08:23 Creatinine CL No CREATININE CLEARANCE(MA-PB) data found Physical Exam: - please see detailed vitals for SEP 18, 2024 BMI: 42.7 During video encounter today, the patient is awake, alert, and oriented x3 in no acute distress. Breathing is non-labored. Visualized sections of skin are within normal limits. Vet is moving all of his extremities. Vet is able to rise from a seated position. Vet displays a normal affect over videoconference. Assessment: The above note documents my personal evaluation of this patient. In addition, I have reviewed and confirmed with the patient and nurse the supportive information documented in today's scanned Patient Health Questionnaire and Office Note. 54 y/o with history of hypothyroidism, hyperlipidemia with signs and symptoms of lumbar radiculopathy - Diagnosis: 1) Lumbar radiculopathy 2) other,chronic pain Discussion/Plan: Analgesics Reviewed non opioid, adjuvant, opioid analgesics - states he developed kidney stones after taking very high doses of ibuprofen for long periods of times - he is not interested in medication management at the time - discussed a few options, for medications to manage pain Injection therapies - consider injections - is somewhat scared of needles, but is interested in using injections to help treat his pain - discussed the use of epidural steroid injections in the management of chronic low back pain. Kelley is interested in the above - will await updated imaging, prior to scheduling injections Imaging: - will be bringing his most recent lumbar MRI for it to be uploaded into the system (dated to 2015- per ) - as pain has progressed since 2016, we discussed a plan to obtain x-rays of the lumbar spine and MRI of the lumbar spine Physical therapy - number provided to schedule battlefield acupuncture - detailed discussion regarding the importance of consistent use of optimized therapeutic and conditioning exercise programs. - prior to scheduling physical therapy, await updated images Psychology/Behavioral medicine - discussed options to treat pain including pain psychology, which is not interested - provide number for battlefield acunpuncture - information for IPR pain program discussed with -not interested at this time Surgical intervention - consider consult post imaging Follow-up - Return to clinic: - Call as needed Time documentation and that the information was discussed and agreed upon with the : I Spent 65 min total in preparing services for this patient, before, during and after the [facility] visit today in evaluation, chart review and care planning with/for pt. /india/ BRUCE PRESTON Physician Signed: 09/18/2024 14:42 BRUCE PRESTON [facility]
--- OUTSIDE RECORDS SUMMARY | 2025-01-02 07:02 | XMS_ITS | Encounter Summary ---
Author Organization [facility] Address [address] [place] [address] Care Team Providers Care Rn Cvicu Name Role Phone Unavailable Primary Care Provider Unavailabl e Encounter Details Date Type Department Care Team (Late st Contact Info) Description 12/31/2024 External Device Data [facility] ABSTRACTION Provider, Abstract NO ADDRESS ON FILE Social History Tobacco Use Types Packs/Day Years Used Date Smoking Tobacco: Never Assessed Sex and Gender Information Value Date Recorded Sex Assigned at Not on file Legal Sex Male 3:21 PM CDT Gender Identity Not on file Sexual Orientation Not on file documented as of this encounter Plan of Treatment Not on file documented as of this encounter Visit Diagnoses Not on filedocumented in this encounter
--- OUTSIDE RECORDS SUMMARY | 2025-01-02 07:02 | XMS_ITS | Encounter Summary ---
Author Name [facility] [place] [facility] [place] Address [address] [place] [address] Care Team Providers Care An/Ssn 2 4 Operator Name Role Phone ANNETTE SMART Primary Care Provider Unavailabl e Insurance [...] STAND SABA FAM Dec 01, 2013 [id number] [phone] ROBBIE GODINEZ PATIENT ANTHEM [place] F[place] PREFERRED PROVIDER ORGANIZAT ION (PPO) FEP STAND SABA FAM Dec 01, 2013 105 [id number] [phone] ROBBIE GODINEZ PATIENT AN[place] F[place] PREFERRED PROVIDER ORGANIZAT ION (PPO) FEP STAND SABA FAM Dec 01, 2013 105 [id number] [phone] ROBBIE GODINEZ PATIENT [place] F[place] PREFERRED PROVIDER ORGANIZAT ION (PPO) FEP STAND SABA FAM Dec 01, 2013 105 [id number] [phone] ROBBIE GODINEZ PATIENT [place] FEP ([id number]) PRESCRIPT ION FEPRX Dec 01, 2013 [id number] [phone] ROBBIE GODINEZ PATIENT Selected Encounter This section includes the information on record at [place] for the Encounter. Date/Time Encounter Type Encounter Description Reason Provider Source Sep 24, 2024 02:00 PM OFFICE O/P EST MOD 30 MIN PRIMARY CARE/MEDICINE ICD-10-CM E03.9 Hypothyroidism, unspecified BARDALES,METTISA IHE Encounter Template Text not used by [place] Assessments - Encounter Diagnoses This section includes the primary and secondary diagnoses documented for the Encounter. Date/Time Primary/Secondary Diagnosis Diagnosis Name Provider Source Sep 24, 2024 02:33 PM PRIMARY Hypothyroidism, unspecified BARDALES,METTISA [facility] Sep 24, 2024 02:33 PM SECONDARY Dorsalgia, unspecified BARDALES,METTISA [facility] Sep 24, 2024 02:33 PM SECONDARY Hyperlipidemia, unspecified [facility] Plan of Treatment: Future Appointments (+ 6 months) and Future Tests (+/- 45 days) The Plan of Treatment section includes future care activities for the patient from all [place] treatmentfacilities. This section includes future appointments and future orders which are active, pending or scheduled. Future Appointments This section includes appointments that were scheduled to occur 6 months from the date of the Encounter, up to a maximum of 20 appointments. The data comes from all [place] treatment facilities. Appointment Date/Time Appointment Type Appointme nt Facility Name Dec 18, 2024 08:30 AM AMBULATORY - NONE [facility] Jan 02, 2025 07:00 AM AMBULATORY - NONE [facility] Lab Results: +/- 30 days of the encounter This section includes the Chemistry and Hematology Lab Results on record with [place] for the patient. Radiology Reports and Pathology Reports are provided separately, in subsequent sections. Lab Results This section contains the Chemistry/Hematology Results that were resulted 30 days before or 30 daysafter the date of the Encounter. Date/Time Source Result Type Result - Unit Interpretation Reference Range Comment Sep 25, 2024 01:12 PM [facility] PROST. SPECIFIC AG.(PB-STL) Specimen Type: SERUM Comment: The listed sex of this patient may not be a typical indication for this test. Therefore, reference ranges or interpretive criteria listed may not be valid. Clinical correlation suggested. Ordering Provider: PATTI BARDALES Report Released Date/Time: Sep 24, 2024 01:44 PM Reporting Lab: [facility] [address] [place] [phone] Performing Lab: [facility] [address] [id number] PROST. SPECIFIC AG.(PB-STL) 2.003 ng/mL 0-4 Sep 25, 2024 01:12 PM [facility] HGA1C Specimen Type: BLOOD No comment entered. Ordering Provider: PTATI BARDALES Report Released Date/Time: Sep 24, 2024 01:44 PM Reporting Lab: [address] Performing Lab: [address] [phone] HGA1C 5.3 4.0-6.0 Sep 25, 2024 01:12 PM [facility] TSH W/ REFLEX FT4 (STL) Specimen Type: PLASMA No comment entered. Ordering Provider: PATTI BARDALSE Report Released Date/Time: Sep 24, 2024 01:45 PM Reporting Lab: [facility] [address] [place] [phone] Performing Lab: [facility] [address] [place] [phone] TSH 12.725 u[IU]/mL H 0.47-5 FREE T4(REFLEX) 0.93 ng/mL 0.7-1.48 Sep 25, 2024 01:12 PM [facility] LIPID PANEL (STL) Specimen Type: PLASMA Comment: No hemolysis noted. Ordering Provider: PATTI BARDALES Report Released Date/Time: Sep 24, 2024 01:44 PM Reporting Lab: [facility] [address] [place] [phone] Performing Lab: [facility] [address] [place] [phone] CHOLESTEROL 251 mg/dL H 0-200 TRIGLYCERIDE 139 mg/dL 0-150 CALCULATED LDL 182 mg/dL HDL(New) 41 mg/dL >40 Sep 25, 2024 01:12 PM [facility] BASIC METABOLIC PANEL Specimen Type: PLASMA Comment: No hemolysis noted. Ordering Provider: PATTI BARDALES Report Released Date/Time: Sep 24, 2024 01:44 PM Reporting Lab: [facility] [address] [phone] Performing Lab: [facility] [address] [phone] CREATININE 1.44 mg/dL H 0.7-1.3 UREA NITROGEN 15.1 mg/dL 9.0-25.0 GLUCOSE 83 mg/dL 72-99 SODIUM 138 meq/L 136-145 POTASSIUM 4.2 meq/L 3.5-5 CHLORIDE 100 meq/L 98-107 CARBON DIOXIDE 26 meq/L 22-31 CALCIUM 10.2 mg/dL 8.4-10.4 EGFR (CKD-EPI 2020) 58.1 >60 Vital Signs: All taken on the encounter date This section contains inpatient and outpatient Vital Signs collected on the date of the Encounter. Date/Time Temperature Pulse Blood Pressure Respiratory Rate SP02 Pain Height Weight Body Mass Index Source Sep 24, 2024 01:50 PM 135/90 [facility] Sep 24, 2024 01:50 PM 98.8 67 165/75 18 95 9 299.8 42 [facility] Social History: Smoking Status (Most current) and Tobacco Use (All prior to encounter date) This section includes the most current, and the historical, smoking and tobacco- related health factors from the [facility] where the Encounter took place. Current Smoking Status This section includes the most current smoking, or tobacco-related health factor, from the [place] facility where the Encounter took place. Date/Time Current Smoking Status Comment Marquis ity Sep 24, 2024 02:00 PM VA-TOBACCO QUIT 5 TO < 15 YRS [facility] Tobacco Use History This section includes a history of the smoking, or tobacco-related health factors, that were collected on or before the date of the Encounter. The data comes from the [place] facility where the Encounter took place. Date/Time Smoking Status/Tobacco Use Comment F acility Sep 24, 2024 02:00 PM VA-TOBACCO QUIT 5 TO < 15 YRS [facility] Sep 22, 2023 10:30 AM VA-TOBACCO FORMER USER [facility] Sep 22, 2023 10:30 AM VA-TOBACCO QUIT 5 TO < 15 YRS [facility] March 23, 2021 11:30 AM VA-TOBACCO FORMER USER [facility] March 23, 2021 11:30 AM VA-TOBACCO QUIT 1 TO < 5 YRS [facility] Mar 19, 2018 02:34 PM VA-TOBACCO FORMER USER [facility] Mar 19, 2018 02:34 PM VA-TOBACCO QUIT 1 TO < 5 YRS [facility] Mar 19, 2018 01:54 PM QUIT TOBACCO >12 M O & <7 YRS AGO [facility] Mar 17, 2017 09:53 AM CURRENT TOBACCO USER [facility] Mar 17, 2017 09:53 AM TOBACCO MEDS OFFER ED BUT DECLINED [facility] Jul 16, 2015 09:48 AM CURRENT TOBACCO USER [facility] Jul 16, 2015 09:48 AM QUIT TOBACCO >7 YEARS AGO [facility] Jul 16, 2015 09:48 AM TOBACCO MEDS OFFER ED BUT DECLINED [facility] April 15, 2014 03:06 PM CURRENT TOBACCO USER [facility] April 15, 2014 03:06 PM TOBACCO MEDS OFFER ED BUT DECLINED [facility] Jun 22, 2012 08:57 AM CURRENT TOBACCO USER [facility] Jun 22, 2012 08:57 AM TOBACCO OFFERRED P T MEDS (PROVIDER) [facility] May 14, 2010 03:02 PM CURRENT TOBACCO USER [facility] Jul 23, 2009 02:35 PM CURRENT TOBACCO USER [facility] May 05, 2008 10:07 AM CURRENT TOBACCO USER [facility] May 05, 2008 10:07 AM TOBACCO MEDS OFFER ED BUT DECLINED [facility] May 05, 2008 10:[address] OP SMOKING CLINIC [facility] Jan 25, 2007 01:51 PM CURRENT TOBACCO USER [facility] Jan 25, 2007 01:51 PM TOB-DECLINES SMOKI NG CESSATION REFERRAL [facility] Jul 20, 2006 03:29 PM CURRENT TOBACCO USER [facility] Jul 20, 2006 03:29 PM SMOKER <10 [facility] Jan 03, 2006 02:35 PM CURRENT NON-TOBACC O USER-HX OF USE [facility] Jan 03, 2006 02:35 PM TOBACCO TERMINATION STAGE [facility] April 06, 2005 03:02 PM CURRENT TOBACCO USER [facility] April 06, 2005 03:02 PM SMOKER <10 [facility] Oct 07, 2004 02:48 PM CURRENT NON-TOBACC O USER-HX OF USE [facility] Oct 07, 2004 02:48 PM TOBACCO TERMINATION STAGE [facility] Aug 14, 2003 03:04 PM CURRENT NON-TOBACC O USER-HX OF USE stopped 2yrs ago [facility] Sep 20, 2002 03:02 PM CURRENT NON-TOBACC O USER-HX OF USE quit 6 months ago [facility] Sep 20, 2002 03:02 PM CURRENT NON-TOBACC O USER-RECENTLY QUIT six mo. ago [facility] Sep 20, 2002 03:02 PM TOBACCO USE six mo. ago [facility] April 10, 2002 02:57 PM CURRENT TOBACCO USER [facility] April 10, 2002 02:57 PM TOBACCO USE [facility] May 22, 2001 08:33 AM CURRENT NON-TOBACC O USER-HX OF USE QUIT 4 YRS AGO [facility] Encounter Notes: All associated encounter notes This section contains the clinical notes associated to the Encounter. Date/Time Encounter Note(s) Provider Source Sep 26, 2024 02:07 PM PHYSICIAN LETTERS: LOCAL TITLE: TEST RESULT GENERAL LETTER ST STANDARD TITLE: PHYSICIAN LETTERS DATE OF NOTE: SEP 26, 2024@14:07 ENTRY DATE: SEP 26, 2024@14:07:15 AUTHOR: PATTI BARDALES EXP COSIGNER: URGENCY: STATUS: COMPLETED [facility] [address] [place] [address] SEP 26, 2024 WENDI GODINEZ [address] [place], [place] [address] Dear Wendi Godinez, I would like to update you on your recent test results. LIPID PROFILE - High cholesterol and triglycerides (lipids) are risk factors for heart disease. Your cholesterol should fall between 140 and 200, and your triglycerides levels should be less than or equal to 150. HDL is the good cholesterol and should ideally be greater than 40. LDL is the bad cholesterol and optimal levels should be less than 100 (near optimal is between 100 and 129). TRIGLYCERIDE 139 mg/dL 09/25/2024 13:12 CHOLESTEROL 251 H mg/dL 09/25/2024 13:12 HDL(New) 41 mg/dL 09/25/2024 13:12 CALCULATED LDL 182 mg/dL 09/25/2024 13:12 These results are abnormal. higher than recommended and increased from the last measure. Please reach out to the clinic to schedule a visit with our library acquisitions technician to discuss how to balance your interest in weight loss with using diet to control your cholesterol. HEMOGLOBIN A1C - Gives us information about your diabetes (sugar or glucose) control over the past 3 months. Your target is to keep your A1C below 7 %. HGA1C 5.3 % 09/25/2024 13:12 These readings are within normal limits. CHEM 7 - This is important information about the current status of your kidneys, liver, and electrolyte and acid/base balance as well as of your blood sugar and blood proteins. SODIUM 138 mEq/L 09/25/2024 13:12 POTASSIUM 4.2 mEq/L 09/25/2024 13:12 CHLORIDE 100 mEq/L 09/25/2024 13:12 UREA NITROGEN 15.1 mg/dL 09/25/2024 13:12 CREATININE 1.44 H mg/dL 09/25/2024 13:12 CALCIUM 10.2 mg/dL 09/25/2024 13:12 CARBON DIOXIDE 26 mEq/L 09/25/2024 13:12 GLUCOSE 83 mg/dL 09/25/2024 13:12 EGFR (CKD-EPI 2020) 58.1 09/25/2024 13:12 The results are similar to previous values. PSA - Prostate-specific antigen is a protein produced by cells of the prostate gland. The PSA test measures the level of PSA in the blood. PSA PROST. SPECIFIC AG.(PB-ST) 2.003 ng/mL 09/25/2024 13:12 These readings are within normal limits. TSH - Thyroid-stimulating hormone (also known as TSH or thyrotropin) is a peptide hormone synthesized and secreted by thyrotrope cells in the anterior pituitary gland, which regulates the endocrine function of the thyroid gland. TSH TSH 12.725 H uIU/mL 09/25/2024 13:12 These results are abnormal. Your thyroid hormone replacement needs to be increased. I have ordered levothyroxine 175 mcg daily. Please return to the lab in 8 about weeks to have this lab rechecked. FUTURE APPOINTMENTS: 11/19/2024 12:30 OTILIA-PAIN MGMT TEAM P5 09/24/2025 10:00 STORMY-ST CLR PACT 3 PCP Sincerely, PATTI BARDALES STAFF PHYSICIAN WENDI GODINEZ METTISA [facility] Sep 24, 2024 02:08 PM PRIMARY CARE NOTE: LOCAL TITLE: PRIMARY CARE PROVIDER ESTABLISHED VISIT [facility] STANDARD TITLE: PRIMARY CARE NOTE DATE OF NOTE: SEP 24, 2024@14:08 ENTRY DATE: SEP 24, 2024@14:08:41 AUTHOR: PATTI BARDALES EXP COSIGNER: URGENCY: STATUS: COMPLETED PRIMARY CARE PROVIDER ESTABLISHED VISIT [facility] Has ADDENDA Patient is 54 and WHITE Self Identified Gender - NONE FOUND Reason for visit:Scheduled follow-up Chief Complaint: History of Present Illness: taking testosterone from nonVA source weight down 6 pounds, eating carnivore diet steak, eggs, pork, butter Medication Review: The essential med list for review which includes the patient's active VA prescriptions and if applicable, remote VA prescriptions, non-VA prescriptions, and discontinued VA prescriptions within the last 90 days and known allergies including local and remote allergies have been reviewed. Allergies:Patient has answered NKA Active Outpatient Medications (including Supplies): ACETAMINOPHEN 325MG TAB TAKE TWO TABLETS BY MOUTH FOUR ACTIVE TIMES A DAY NEEDED FOR PAIN/FEVER. CAUTION: DO NOT EXCEED 4000MG PER DAY ACETAMINOPHEN (APAP) FROM ALL MEDS. CHOLECALCIF 50MCG (D3-2,000UNIT) TAB TAKE ONE TABLET BY ACTIVE MOUTH ONCE A DAY FOR VITAMIN D DEFICIENCY CYCLOBENZAPRINE HCL 10MG TAB TAKE ONE TABLET BY MOUTH ACTIVE TWICE DAILY NEEDED FOR MUSCLE SPASM. MAY CAUSE DROWSINESS. DO NOT DRINK ALCOHOL WHILE TAKING THIS MEDICATION. DICLOFENAC NA 75MG EC TAB TAKE ONE TABLET BY MOUTH TWICE ACTIVE DAILY NEEDED FOR PAIN - TAKE WITH FOOD LEVOTHYROXINE NA (SYNTHROID) 150MCG TAB TAKE ONE TABLET BY ACTIVE MOUTH MON, MON, MON, MON AND MON AND TAKE TWO TABLETS MONDAY AND MONDAY FOR HYPOTHYROIDISM TAKE 30 MINUTES BEFORE FOOD. TAKE SEPARATELY FROM ALL OTHER MEDICATIONS. Physical Exam VITALS (most recent, as listed in the electronic record): B/P: 135/90 Pulse: 67 Temperature: 98.8 General: WD, WN in NAD, pleasant affect Skin: no lesions or rashes noted. Lungs: CTA bilat, no W/R/R Heart: RRR, nl S1/S2, no murmurs, no S3/S4 gallops. Extremities: No edema, pedal pulses intact Assessment/Plan: --hypothyroidism-replaced, update TSH --chronic lbp-pending scheduling MRI per Dr. King orders --HLD-labs ordered (concern for carnivore diet --prevention: FIT negative 12/2023, vaccines declined RTC: 1 year or prn /india/ PATTI BARDALES STAFF PHYSICIAN Signed: 09/24/2024 14:33 10/25/2024 ADDENDUM STATUS: COMPLETED [facility] MRI lumbar spine without contrast from 05/31/16. Will give to RNCM to upload into the [facility] chart. MRI lumbar spine without contrast impression 05/31/16: 1. L4-L5 grade 1 retrolisthesis, moderate right neural foraminal stenosis and some right lateral recess narrowing. 2. Lesser spondylosis above. /india/ Annette Smart DNP, [employer], [employer]PER[employer] Primary Care Nurse Practitioner Signed: 10/25/2024 14:22 PATTI BARDALES [facility] Sep 24, 2024 02:03 PM NURSING NOTE: LOCAL TITLE: V15 PACT FACE TO FACE NOTE STL STANDARD TITLE: NURSING NOTE DATE OF NOTE: SEP 24, 2024@14:03 ENTRY DATE: SEP 24, 2024@14:03:54 AUTHOR: BRIDGETT GALLEGO EXP COSIGNER: URGENCY: STATUS: COMPLETED Provider Visit: Patient Identifiers : Full Name Date of Reason for visit: Established Follow-Up Mode of Arrival: Ambulatory Allergy Review: Patient has answered NKA Allergy list reviewed and remains current. Recent Vital Signs: Temperature: 98.8 F [37.1 C] (09/24/2024 13:50) Pulse: 67 (09/24/2024 13:50) Respiration: 18 (09/24/2024 13:50) B/P: 135/90 (09/24/2024 13:50) Pain: 9 (09/24/2024 13:50) Wt: 299.8 lb [135.99 kg] (09/24/2024 13:50) Ht: 71 in [180.3 cm] (07/16/2015 09:45) BMI: 41.9 POX: 95% (09/24/2024 13:50) Would you like to discuss any personal problem, family problem, alcohol use, drug use, or a mental or emotional illness? No [facility] ([facility]), please select appointment type: Face to face: Yes- Done Contact provided Primary Care phone number and encouraged to call if any questions or concerns. Review that after hours nurse line [phone] and emergency room are available 12/06 for patient use. Contact verbalized good understanding. Alcohol Use Screen (AUDIT-C) - V: Alcohol Screen: SCREEN FOR ALCOHOL (AUDIT-C) An alcohol screening test (AUDIT-C) was negative (score=3). 1. How often did you have a drink containing alcohol in the past year? Consider a drink to be a 12 ounce can or bottle of regular beer, 8 ounces of malt liquor, a 5 ounce glass of table wine, or a 1.5 ounce shot of liquor (like scotch, gin, or vodka). Two to three times per week 2. How many drinks containing alcohol did you have on a typical day when you were drinking in the past year? One or two drinks 3. How often did you have six or more drinks on one occasion in the past year? Never Depression Screening - V: Perform PHQ-2 A PHQ-2 screen was performed. The score was 0 which is a negative screen for depression. Over the past two weeks, how often have you been bothered by the following problems? 1. Little interest or pleasure in doing things Not at all 2. Feeling down, depressed, or hopeless Not at all Homelessness/Food Insecurity Screen - DI,L,N,P,PH,PS,S,U: In the past 2 months, have you been living in stable housing that you own, rent, or stay in as part of a household? Yes - Living in stable housing. Are you worried or concerned that in the next 2 months you may NOT have stable housing that you own, rent, or stay in as part of a household? No - Not worried about housing near future The [place] reports the following: Within the past 12 months, you worried whether your food would run out before you got money to buy more. Never true Within the past 12 months, the food you bought just didn't last and you didn't have money to get more. Never true Tobacco Use Screening - AT,DE,L,M,N,P,PH,PS,S: The patient is a former tobacco user. The patient quit five to less than fifteen years ago. COVID-19 Immunization - L,N,P,PH,U: Refused Pfizer Monovalent COVID-19 vaccine Immunization: COVID-19 (PFIZER), MRNA, LNP-S, PF, DEV-SUCROSE, 30 MCG/0.3 ML (AGES 12+ YEARS) Refusal Reason: PATIENT DECISION Patient refuses all immunization(s) in the COVID-19 group Date Documented: 09/24/24 14:06 Influenza Immunization - L,N,P,PH,U: Deferral / Refusal The patient declines to receive the recommended dose of seasonal influenza vaccine. Immunization: INFLUENZA, UNSPECIFIED FORMULATION Refusal Reason: PATIENT DECISION Patient refuses all immunization(s) in the FLU group Date Documented: 09/24/24 14:07 Herpes Zoster (Shingles) Vaccine - L,N,P,PH,U: The patient declines to receive the recommended dose of zoster (shingles) vaccine. Immunization: ZOSTER RECOMBINANT Refusal Reason: PATIENT DECISION Patient refuses all immunization(s) in the ZOSTER group Date Documented: 09/24/24 14:07 harini/ BRIDGETT GALLEGO LPN LICENSED PRACITCAL NURSE Signed: 09/24/2024 14:07 BRIDGETT GALLEGO [facility]
== END 2025-01-02 06:57 | disposition home or self-care (01) ==
DX: M47.896 Other spondylosis, lumbar region (principal)
CPT/HCPCS: 72148